=== PATIENT | female | born 1975 | race Caucasian/White ===

== ENCOUNTER 2016-10-20 13:37 | Emergency (ER) | payer BC ==
[2016-10-20] MEDS ORDERED: HYDROmorphone INJ* 1 MG/ML CARPUJECT SYRINGE IV ONE (13:57)
[2016-10-20] MEDS ORDERED: Sucralfate TAB* 1 GM PO ONE (13:57)
[2016-10-20] MEDS ORDERED: Ketorolac INJ* 30 MG/ML 1 ML VIAL IV ONE (13:57)
[2016-10-20 14:35] LABS: Hematocrit 34 % (35-47); Hemoglobin 11.3 g/dl (12.0-16.0); Mean Corpuscular HGB Conc 33 g/dl (31-36); Mean Corpuscular Hemoglobin 30 pg (27-31); Mean Corpuscular Volume 92 fL (80-97); Mean Platelet Volume 10 um3 (7.4-10.4); Red Blood Count 3.72 10^6/ul (4.0-5.4); Red Cell Distribution Width 14 % (10.5-15); White Blood Count 3.4 10^3/ul (3.5-10.8)
[2016-10-20 14:36] LABS: Comments Flag Yes
[2016-10-20 14:37] LABS: Add Diff/Slide Review? Slide Review Added
[2016-10-20 14:47] LABS: ALT 18 U/L (7-52); AST 40 U/L (13-39); Albumin 4.2 g/dL (3.2-5.2); Alkaline Phosphatase 46 U/L (34-104); Anion Gap 4 mmol/L (2-11); BUN/Creatinine Ratio 9.6 (8-20); Blood Urea Nitrogen 8 mg/dL (6-24); C Reactive Protein < 1.00 mg/L (< 5.00); CO2 Carbon Dioxide 30 mmol/L (22-32); Calcium 9.8 mg/dL (8.6-10.3); Chloride 102 mmol/L (101-111); EGFR African American 97.9 (>60); EGFR Non-African American 76.1 (>60); Globulin 2.9 g/dL (2-4); Glucose 123 mg/dL (70-100); Lipase 40 U/L (11.0-82.0); Potassium 3.7 mmol/L (3.5-5.0); Sodium 136 mmol/L (133-145); Total Protein 7.1 g/dL (6.4-8.9)
--- NOTE | 2016-10-20 15:53 | ED ---
lanny Hernandez Timothy, scribed for Kyle Ayoub MD on 10/20/16 at 1406 . HPI Chest Pain - HPI Summary HPI Summary: Lorenzo Pitts is a 41 yo female presenting to [facility] with 8/10 burning CP since 1230 today. She states she usually has pain in her esophageal region which resolves, but this time after she threw up the pain started escalating. She states that the pain has moved to the left side of her chest and radiates down her arm as of 12:30 today. The pain has decreased to a certain extent. She states she vomits routinely as a result of her gastroparesis, which is why her esophagus is so frequently painful. She states she had a similar episode to this 2 years ago. Her Hx includes GERD, palpitations, eating disorder, gastroparesis, autonomic neuropathy, depression, anxiety, and anemia. - History of Current Complaint Time Seen by Provider: 10/20/16 13:46 Hx Obtained From: Patient Onset/Duration: Started Hours Ago, Still Present Time of Onset: 12:30 Timing: Constant, Lasting Hours Initial Severity: Moderate Current Severity: Moderate Pain Intensity: 8 Pain Scale Used: 0-10 Numeric Chest Pain Location: Left Anterior Chest Pain Radiates: Yes Chest Pain Radiates To:: Arm - left Character: Burning Aggravating Factor(s): Nothing Alleviating Factor(s): Nothing Associated Signs and Symptoms: Positive: Chest Pain - Allergy/Home Medications Allergies/Adverse Reactions: Allergies Allergy/AdvReac Type Severity Reaction Status Date / Time Penicillins Allergy Severe See Comment Verified 10/18/16 13:57 Metoclopramide [From Reglan] Allergy Intermediate See Comment Verified 10/18/16 13:57 Trimethobenzamide Allergy Intermediate See Comment Verified 10/18/16 13:57 [From Tigan] Buspirone Allergy See Comment Verified 10/18/16 13:57 Gabapentin [From Neurontin] Allergy Unknown Verified 10/18/16 13:57 Reaction Details Iodinated Diagnostic Agents Allergy Hives Verified 10/18/16 13:57 Mirtazapine [From Remeron] Allergy See Comment Verified 10/18/16 13:57 Promethazine [From Phenergan] AdvReac Intermediate CANT STOP Verified 10/18/16 13:57 MOVING Prochlorperazine AdvReac LOSES Verified 10/18/16 13:57 [From Compazine] MUSCLE CONTROL PMH/Surg Hx/FS Hx/Imm Hx Endocrine/Hematology History: Reports: Hx Anemia - R/T GASTROPARESIS Denies: Hx Diabetes Cardiovascular History: Denies: Hx Congestive Heart Failure, Hx Hypertension, Other Cardiovascular Problems/Disorders GI History: Reports: Hx Gastroesophageal Reflux Disease, Other GI Disorders - "gastroparesis" History: Denies: Hx Dialysis, Hx Renal Disease Musculoskeletal History: Reports: Hx Arthritis - RIGHT SHOULDER Denies: Other Musculoskeletal History Sensory History: Reports: Hx Contacts or Glasses - for driving Denies: Hx Hearing Aid, Hx Hearing Problem Opthamlomology History: Reports: Hx Contacts or Glasses - for driving Neurological History: Denies: Other Neuro Impairments/Disorders Psychiatric History: Reports: Hx Anxiety - ON MEDS, Hx Eating Disorder - GASTROPARESISI, Hx Depression - ON MEDS - Surgical History Surgery Procedure, Year, and Place: shoulder (right), 2000 AND 2009, [facility]. IMPLANTED POWER PORT Hx Anesthesia Reactions: No - Immunization History Date of Tetanus Vaccine: up to date per pt Infectious Disease History: No Infectious Disease History: Denies: History Other Infectious Disease, Traveled Outside the [place] in Last 30 Days - Family History Known Family History: Positive: Cardiac Disease - quadruple bypass twice, 4 [place], Hypertension, Diabetes - Social History Alcohol Use: None Substance Use Type: Reports: None Smoking Status (MU): Never Smoked Tobacco Have You Smoked in the Last Year: No Review of Systems Constitutional: Negative Eyes: Negative Positive: Other - esophageal pain Positive: Chest Pain Respiratory: Negative Positive: Vomiting Genitourinary: Negative Musculoskeletal: Negative Skin: Negative Neurological: Negative Psychological: Normal All Other Systems Reviewed And Are Negative: Yes Physical Exam Triage Information Reviewed: Yes Vital Signs On Initial Exam: Initial Vitals Temp Pulse Resp BP Pulse Ox 98.4 F 66 16 107/61 100 10/20/16 13:53 10/20/16 13:53 10/20/16 13:53 10/20/16 13:53 10/20/16 13:53 Vital Signs Reviewed: Yes Appearance: Positive: Well-Nourished, Ill-Appearing - pale, Pain Distress - mild Skin: Positive: Warm, Dry, Pale Head/Face: Positive: Normal Head/Face Inspection Eyes: Positive: Normal ENT: Positive: Normal ENT inspection Neck: Positive: Supple, Nontender Respiratory/Lung Sounds: Positive: Clear to Auscultation, Breath Sounds Present Cardiovascular: Positive: RRR Abdomen Description: Positive: Nontender, Soft Bowel Sounds: Positive: Present Musculoskeletal: Positive: Normal Neurological: Positive: Normal Psychiatric: Positive: Normal Diagnostics - Vital Signs Vital Signs Temp Pulse Resp BP Pulse Ox 10/20/16 13:53 98.4 F 66 16 107/61 100 - Laboratory Lab Results: Lab Results 10/20/16 10/20/16 10/20/16 Range/Units 13:40 13:40 13:40 WBC 3.4 L (3.5-10.8) 10^3/ul RBC 3.72 L (4.0-5.4) 10^6/ul Hgb 11.3 L (12.0-16.0) g/dl Hct 34 L (35-47) % MCV 92 (80-97) fL MCH 30 (27-31) pg MCHC 33 (31-36) g/dl RDW 14 (10.5-15) % Plt Count 185 (150-450) 10^3/ul MPV 10 (7.4-10.4) um3 Neut % (Auto) 44.5 (38-83) % Lymph % (Auto) 44.2 (25-47) % [place] % (Auto) 9.0 (1-9) % Eos % (Auto) 1.4 (0-6) % Baso % (Auto) 0.9 (0-2) % Absolute Neuts (auto) 1.5 (1.5-7.7) 10^3/ul Absolute Lymphs (auto) 1.5 (1.0-4.8) 10^3/ul Absolute Monos (auto) 0.3 (0-0.8) 10^3/ul Absolute Eos (auto) 0 (0-0.6) 10^3/ul Absolute Basos (auto) 0 (0-0.2) 10^3/ul Absolute Nucleated RBC 0 10^3/ul Nucleated RBC % 0.1 Sodium 136 (133-145) mmol/L Potassium 3.7 (3.5-5.0) mmol/L Chloride 102 (101-111) mmol/L Carbon Dioxide 30 (22-32) mmol/L Anion Gap 4 (2-11) mmol/L BUN 8 (6-24) mg/dL Creatinine 0.83 (0.51-0.95) mg/dL Est GFR ( Amer) 97.9 (>60) Est GFR (Non-Af Amer) 76.1 (>60) BUN/Creatinine Ratio 9.6 (8-20) Glucose 123 H (70-100) mg/dL Lactic Acid 1.3 (0.5-2.0) mmol/L Calcium 9.8 (8.6-10.3) mg/dL Total Bilirubin 0.40 (0.2-1.0) mg/dL AST 40 H (13-39) U/L ALT 18 (7-52) U/L Alkaline Phosphatase 46 (34-104) U/L Troponin I 0.00 (<0.04) ng/mL C-Reactive Protein < 1.00 (< 5.00) mg/L Total Protein 7.1 (6.4-8.9) g/dL Albumin 4.2 (3.2-5.2) g/dL Globulin 2.9 (2-4) g/dL Albumin/Globulin Ratio 1.4 (1-3) Lipase 40 (11.0-82.0) U/L Beta HCG, Quant < 0.60 mIU/mL Result Diagrams: 10/20/16 13:40 10/20/16 13:40 Lab Statement: Any lab studies that have been ordered have been reviewed, and results considered in the medical decision making process. - EKG 1529 Cardiac Rate: NL - @ 63 BPM EKG Rhythm: Sinus Rhythm EKG Interpretation: NSR @ 63 BPM, nonspecific changes conmpared to 04/20/15 Chest Pain Course/Dx - Course Assessment/Plan: Lorenzo Pitts is a 41 yo female presenting to [facility] with sharp left-sided CP radiating down her left arm. She has a Hx of esophageal pain due to gastroparesis. She felt a lot better after meds (she was down to her baseline). After review of her labs, she will be discharged home with gastroparesis. - Diagnoses Provider Diagnoses: Gastroparesis Discharge - Discharge Plan Condition: Stable Disposition: HOME Patient Education Materials: Gastroparesis (ED) Referrals: Suzanne Dhillon NP [Primary Care Provider] - Additional Instructions: Please follow up with your primary care physician within 2 days regarding your visit to the emergency department. Return to the emergency department with any new or recurring symptoms. The documentation as recorded by the lanny sears Timothy accurately reflects the service I personally performed and the decisions made by me, Kyle Ayoub MD.
[2016-10-20 16:10] VITALS: BP 107/62
== END 2016-10-20 16:09 | disposition home or self-care (01) ==
LOC: ED 13:37
DX: K31.84 Gastroparesis (principal); R07.9 Chest pain, unspecified; R11.10 Vomiting, unspecified
CPT/HCPCS: 36415; 80053; 83605; 83690; 84484; 84702; 85025; 86140; 93005; 96374; 96375; 99282; A9270-GY; J1170; J1885

== ENCOUNTER 2024-04-07 21:29 | Observation (INO) ==
[2024-04-07] MEDS ORDERED: methylPREDNISolone SOD SUCC 125 mg 2 ML VIAL ONE (21:42)
[2024-04-07] MEDS ORDERED: EPINEPHrine Anaphylaxis SYR CERTADOSE SYR KIT ONE (21:47)
[2024-04-07] MEDS: fentaNYL 100 mcg/2 ml 50 MCG/ML VIAL IV SLOW PU ONE (21:50)
[2024-04-07] MEDS: methylPREDNISolone SOD SUCC 125 mg 2 ML VIAL IV ONE (21:50)
[2024-04-07] MEDS: Iodixanol (CONTRAST) 320 MG/ML 100 ML SDV IV ONE (22:10)
[2024-04-07 23:06] LABS: ABS Eosinophils 0.1 10^3/uL (0.0-0.5); ABS Lymphocytes 0.7 10^3/uL (1.0-4.8); ABS Monocytes 0.2 10^3/uL (0.0-0.9); ABS Neutrophils 3.5 10^3/uL (1.5-7.6); Hematocrit 31.3 % (35-45); Hemoglobin 10.7 g/dL (11.5-14.3); Lymphocyte % 14.6 %; Mean Corpuscular Hgb Conc 34.2 g/dL (31-36); Mean Corpuscular Volume 93.7 fL (80-97); Platelet Count 188 10^3/uL (150-450); Red Blood Count 3.34 10^6/uL (3.63-4.92); Red Cell Distribution Width 12.6 % (12-17); White Blood Count 4.6 10^3/uL (3.8-11.8)
[2024-04-07 23:20] LABS: INR 1.09 (0.83-1.13)
[2024-04-07 23:30] LABS: High Sens Troponin Baseline < 3 pg/mL (<15)
[2024-04-08 00:21] LABS: ALT 8 U/L (7-52); AST 19 U/L (13-39); Albumin 4.1 g/dL (3.2-5.2); Albumin/Globulin Ratio 1.9 (1-3); Alkaline Phosphatase 47 U/L (35-149); Anion Gap 10 mmol/L (2-16); Blood Urea Nitrogen 8 mg/dL (6-24); CO2 Carbon Dioxide 27 mmol/L (22-32); Chloride 104 mmol/L (101-111); Creatinine, Serum 1.27 mg/dL (0.51-0.95); Globulin 2.2 g/dL (2-4); Glucose 87 mg/dL (70-100); Potassium 3.9 mmol/L (3.5-5.0); Sodium 141 mmol/L (135-145); Total Bilirubin 0.3 mg/dL (0.2-1.0); Total Protein 6.3 g/dL (6.4-8.9); eGFR CKD-EPI 52.5 (>60)
[2024-04-08 01:11] LABS: High Sensitivity Troponin 1 Hr 3 pg/mL (<15)
[2024-04-08] MEDS ORDERED: Morphine 2 MG/ML SYRINGE IV PRN (03:41)
[2024-04-08] MEDS ORDERED: Acetaminop/Codeine 300mg/30mg TAB PO PRN (03:47)
[2024-04-08 04:18] LABS: C Reactive Protein < 1.00 mg/L (<8.01)
[2024-04-08 05:09] LABS: Erythrocyte Sed Rate 9 mm/Hr (0-19)
[2024-04-08] MEDS: fentaNYL Patch Check Q Shift NOTE FOLLOW UP SCH (07:59)
[2024-04-08] MEDS: Lactated Ringers 1000 ml BAG 1,000 ML IV SCH (08:18)
[2024-04-08] MEDS: Sulfur Hexaflouride MICROSPHR 25 MG VIAL IV ONE (09:13)
[2024-04-08] MEDS ORDERED: Regadenoson 0.4 MG/5 ML SYRINGE ONE (10:59)
[2024-04-08] MEDS ORDERED: Aminophylline 25 MG/ML VIAL ONE (10:59)
[2024-04-08] MEDS: fentaNYL PATCH 25 MCG/HR 1 PATCH TRANSDERM SCH (11:06)
[2024-04-08] MEDS: Enoxaparin 40 MG/0.4 ML SYR SUBCUT SCH (11:06)
[2024-04-08 16:24] VITALS: BP 110/64
== END 2024-04-08 15:39 | disposition home or self-care (01) ==
LOC: ED 21:29 → EDHOLD 21:29 → MEDTELE 04-08 13:52 → EDHOLD 04-08 15:22
PROVIDERS: ADMIT Student in an Organized Health Care Education/Training Program; ATTEND Student in an Organized Health Care Education/Training Program